=== PATIENT | female | born 1955 | race American Indian/Alaskan Native ===

== ENCOUNTER → 2021-07-19 08:04 | Outpatient (CLI) | payer MEDICARE, MEDICAID, SELFPAY ==
[2021-07-19 09:10] LABS: BUN Creatinine Ratio 14.8 (6-22); Blood Urea Nitrogen 12 mg/dL (7-17); Estimated Glomerular Filt Rate > 60.0 mL/min (>60)
--- NOTE | 2021-07-19 09:49 | DI.CT.S_ITS ---
PROCEDURE: CT CHEST ABD PEL W CON INDICATIONS: breast cancer staging TECHNIQUE: After the administration of oral and intravenous contrast, axial sections acquired from the supraclavicular neck to the pubic symphysis. Coronal and sagittal reformats were performed. For radiation dose reduction, the following was used: automated exposure control, adjustment of mA and/or kV according to patient size. COMPARISON:None. FINDINGS: Image quality: Excellent. CHEST: Lower Neck: No enlarged lymph nodes. Thyroid: Within normal limits. Axillae: No enlarged lymph nodes. Punctate radiodensity and one of the right axillary lymph nodes, likely from recent biopsy. Chest Wall: Dense breast tissue bilaterally. Medial right chest hyperdense or enhancing subdermal nodule. Lungs and Airways: Mild centrilobular emphysematous change. No dense airspace consolidations or suspicious ground-glass opacities. No nodules or masses. Pleura: No pneumothorax or pleural effusions. Heart: Heart size is normal. Trace pericardial effusion. Thoracic Vessels: The aorta and pulmonary arteries demonstrate normal size. Moderate calcific and noncalcified aortic atherosclerosis. Mediastinum and [place]: No enlarged lymph nodes. Esophagus: No wall thickening. No hiatal hernia. ABDOMEN: Liver: Normal size. Mild steatosis. No suspicious mass. Gallbladder: Normal wall thickness. Biliary ducts: Nondilated. Pancreas: Normal. Spleen: Extremely diminutive with a trace amount of linear splenic tissue in the subdiaphragmatic left upper quadrant. Adrenal Glands: No nodules. Kidneys and Ureters: Normal enhancement. No hydronephrosis or hydroureter. No calcifications. Stomach and Bowel: Stomach, small bowel loops, and colon are unremarkable. Occasional diverticulosis. Peritoneum: No abnormal intraperitoneal fluid. No free air. Ventral Wall: No hernia. Abdominal Nodes: Left periaortic lobulated soft tissue, most likely adenopathy measuring 2.9 x 2.6 x 2.3 cm slightly superiorly displacing the left renal artery. No other adenopathy in the retroperitoneum or mesenteric region. Vessels: The abdominal aorta demonstrates moderate atherosclerotic change. There is a semi circumferential periaortic fluid collection in the midportion measuring about 2.6 cm in length which may be partially thrombosed contained rupture. Maximal diameters are 2.5 cm in transverse diameter by 2.7 cm in AP diameter. PELVIS: Pelvic Organs: Uterus and ovaries are normal. Bladder: Partially decompressed and the wall thickness is normal. No stones. Pelvic Nodes: No enlarged lymph nodes. Miscellaneous: No inguinal hernias are seen. Bones: Mild reverse S scoliosis of the thoracolumbar spine and superior endplate depression of L3. There are moderate degenerative endplate changes in L4 and L5. Irregular mixed lytic and sclerotic lesion involving the left sacroiliac joint and partial ankylosis of both SI joints. Degenerative changes in the hips. IMPRESSION: 1. Lobulated soft tissue the left periaortic region just below the left renal vasculature. Given its close association to the aorta and other findings of aortic atherosclerosis. Differential diagnosis includes adenopathy, as well as a contained or thrombosed periaortic hematoma. PET-CT is recommended. 2. No other changes to suspect metastatic disease in the chest, abdomen, or pelvis. 3. Bony changes in bilateral sacroiliac joints may be inflammatory although metastatic lesions cannot be entirely excluded. Correlation with PET-CT or bone scan is recommended. 4. Aortic atherosclerosis and partially thrombosed mid aorta ectasia. 5. Hepatic steatosis. 6. Trace residual splenic tissue. Correlate with history. Dictated by: Mala Potter M.D. on 07/19/2021 at 11:06 Approved by: Mala Potter M.D. on 07/19/2021 at 11:31
== END ==
PROVIDERS: PCP Family Medicine; Referring Provider Surgery; Visit Provider Surgery
DX: Z01.812 Encounter for preprocedural laboratory examination (principal); C50.911 Malignant neoplasm of unspecified site of right female breast; I77.811 Abdominal aortic ectasia; I70.0 Atherosclerosis of aorta; K76.0 Fatty (change of) liver, not elsewhere classified; M89.9 Disorder of bone, unspecified
CPT/HCPCS: 36415; 71260; 74177; 82565; 84520; Q9967

== ENCOUNTER → 2021-07-20 09:30 | Outpatient (CLI) | payer MEDICARE, MEDICAID, SELFPAY ==
[2021-07-20 10:45] LABS: COVID19 -Nasal RAPID Negative (Negative)
== END ==
PROVIDERS: PCP Family Medicine; Visit Provider Surgery
DX: Z01.812 Encounter for preprocedural laboratory examination (principal); Z20.822 Contact with and (suspected) exposure to COVID-19
CPT/HCPCS: 87635; C9803

== ENCOUNTER 2021-07-21 07:44 | Day surgery (SDC) | payer MEDICARE, MEDICAID, SELFPAY ==
[2021-07-19 13:54] VITALS: BMI 17.2
[2021-07-21] VITALS (16 sets, daily range): BP systolic 125–184; BP diastolic 60–102; PULSE 59–90; RESP 12–18; TEMP 36.2–36.8; O2SAT 94–100; BMI 17.2
--- NOTE | 2021-07-21 | DI.MG.S_ITS ---
SPECIMEN: 07/21/2021 CLINICAL: Specimen right. No prior exams were available for correlation. The imaged specimen contains the biopsy clip and spiculated mass with associated calcifications. IMPRESSION: SPECIMEN The imaged specimen contains the biopsy clip and spiculated mass with associated calcifications. This exam was interpreted at Station ID: [id number]. Kwabena Ahn M.D. jr/:07/21/2021 11:38:18
--- NOTE | 2021-07-21 | PATH_ITS ---
[facility] Accession Number: [id number] . 01 Material submitted: . PART A: breast - RIGHT BREAST SHORT STITCH IS SUPERIOR..LONG STITCH LATERAL PART B: lymph node - RIGHT AXILLARY SENTINEL NODES . 02 Diagnosis: A. Right Breast, Mastectomy: Invasive (ductal) carcinoma, grade 1 of 3 (Min combined histologic grade, total score 5/9) with the following features: 1. Tumor size (invasive component): 19 mm, by gross measurement. 2. Nuclear pleomorphism: Intermediate. (2/3) 3. Mitotic rate: Low. (1/3) 4. Tubular differentiation: Moderate degree. (2/3) 5. Ductal carcinoma in situ (DCIS): Present, with the following features: -Nuclear grade: Low to intermediate. -Necrosis: Not identified. -Type: Cribriform. -Extent: Present on more than one slide (five slides with DCIS) corresponding to tissue slices 2-5, spanning approximately 19 mm. 6. Calcifications: Present, in association with invasive carcinoma, benign breast tissue, and media of vessels. 7. Lymphatic invasion: Not identified. 8. Resection margins: a. Invasive carcinoma is less than 0.5 mm from the daniel-superior margin (block A5), 1 mm from the daniel-superior margin (A3 and A4), 1.2 mm from the posterior margin (A5), and more than 2 mm from the remaining margins. b. DCIS is 0.5 mm from the daniel-superior margin (block A7), 0.6 mm from the daniel-superior margin (A5), 3 mm from the posterior margin, and more than 2 mm from the remaining margins. 9. Prognostic markers: Performed on prior biopsy, outside case #[id number], [id number], 05/18/2021) with the following reported findings: -Estrogen receptor: Positive (100% tumor cells staining, strong intensity). -Progesterone receptor: Negative (less than 1% tumor cells staining). -HER2: Negative for HER2 gene amplification by FISH studies. 10. Regional lymph node status (see part B below): Two sentinel lymph nodes, negative for malignancy (0/2). 11. Additional findings: -Skin, nipple and skeletal muscle fragments are present and uninvolved. -Background of fibrocystic change, including microcystic duct dilatation, stromal fibrosis, columnar cell change/columnar cell hyperplasia, apocrine metaplasia, focal usual ductal hyperplasia, and focal sclerosing adenosis. 12. Pathologic stage: pT1c pN0(sn). . B. Right Axillary [place] Lymph Nodes, Dissection: Two lymph nodes, negative for malignancy (0/2). Biopsy site changes are present. MRV 07/26/2021 2341 Local . 02 Electronically signed: . Elise Lyons MD, Pathologist NPI- [id number] . 01 Gross description: . A. The specimen is received in formalin, labeled right breast and consists of a right simple mastectomy specimen. Weight: 117 grams. Measurement: 12.5 cm from medial to lateral by 9.6 cm from superior to inferior by 2.0 cm from anterior to posterior. Skin Ellipse: The serna wrinkled skin ellipse measures 7.5 x 3.8 cm. Nipple/Areola: The slightly everted nipple measuring 0.8 x 0.8 x 0.2 cm and the areolar complex measures 3.2 x 2.5 cm. Axillary Tail: Absent. Margins: The specimen is oriented with a short suture designated superior and a long suture designated lateral. The specimen is inked as follows: Anterosuperior blue, anteroinferior green, posterior black and nipple base yellow. Slices: The specimen is serially sectioned from lateral to medial into 20 slices. Lesion: There is a 1.9 x 1.4 x 0.6 cm well-circumscribed firm serna-white lesion within slices 2-6. The lesion is located 0.2 cm from the deep margin. Distance to Margins: 0.3 cm from the lateral margin, 0.1 cm from the anterosuperior and anteroinferior margins, and greater than 2 cm from the nearest skin, nipple, and medial margins. Biopsy Clip: There is a silver metallic ribbon-shaped biopsy clip centrally located within the lesion in slice 5. Other: The remaining cut surfaces are composed of approximately 70% serna-yellow lobulated adipose tissue and 30% serna-white focally cystic fibrous tissue. Cook Helper Fruit sections are submitted. Dr. Lyons re-reviewed the gross and the blocks on this specimen on 07/26/21. A1: Nipple, perpendicularly sectioned and entirely submitted. A2: Slice 1, medial margin, bilingual call center representative perpendicular sections. A3-A5: Slices 2-4, lesion (A5 contains slice 4, bisected). A6-A7: Slice 5, bisected. A8: Slice 6. A9: Slice 7, medial to lesion. A10-A11: Cook Helper Fruit upper outer quadrant. A12-A13: Cook Hel[place] Fruit upper inner quadrant. A14-A15: Cook Hel[place] Fruit lower inner quadrant. A16: Nipple base. Ischemic Time: Approximately 27 hours. . B. Received in formalin, labeled right axillary sentinel nodes consists of multiple serna-yellow lobulated fragments of adipose tissue measuring 3.5 x 3.0 x 1.5 cm in aggregate which is sectioned to reveal two serna-pink lymph nodes measuring 0.3 x 0.2 x 0.2 cm and 2.5 x 1.0 x 0.6 cm. The specimen is entirely submitted. . B1: One large bisected lymph node. B2: Small lymph node and remaining soft tissue. (EA:[id number]) /MRV 07/26/2021 2341 Local . 02 Pathologist provided ICD-10: C50.911 . 02 CPT . 433997, 380263 Performed at: [facility] [address] [id number] MD Josr Pendleton MD Phone: [phone] [facility]: [facility] [address] [place] [id number] MD Brook Manuel MD Phone: [phone]
[2021-07-21] MEDS: LACTATED RINGERS 1,000 ML 42 ML IV (08:41)
--- NOTE | 2021-07-21 08:56 | DI.NM.S_ITS ---
PROCEDURE: NM SENTINEL NODE W IMAGING RADIOPHARMACEUTICAL: 0.97 mCi Millipore filtered Tc-99m sulfur colloid. INDICATIONS: breast cancer COMPARISON: None. TECHNIQUE: The area around the nipple was prepped and draped in a sterile right breast. Images were obtained subsequently. A body contour outline was obtained. FINDINGS: There is/are 2 lymph node(s) in the ipsilateral axilla, which is marked on the skin and the images for referring physician. IMPRESSION: Administration of radiotracer into the right breast periareolar region for intra-operative sentinel lymph node localization. Dictated by: Sylvie Mendoza MD, PhD on 07/21/2021 at 10:19 Approved by: Sylvie Mendoza MD, PhD on 07/21/2021 at 10:20
[2021-07-21] MEDS: ACETAMINOPHEN 325 MG TABLET 650 MG PO ×3 (09:17→23:32)
--- NOTE | 2021-07-21 10:25 | PM.PREOP ---
Pre-operative Note Interval Note History & Physical reviewed/Exam performed by Physician: Yes Changes to H&P: No
[2021-07-21] MEDS: CEFAZOLIN 2 GM/20 ML SYRINGE IV (10:35)
--- NOTE | 2021-07-21 10:53 | SUR.OPER ---
Supine on padded OR bed, head on pillow, arms secured on padded arm boards at <90 degrees abduction, legs uncrossed, safety belt at thigh, tape over blanket over lower legs.
--- NOTE | 2021-07-21 10:53 | SUR.OPER ---
loose teeth noted.. gel pad under heels and pillow under knees
[2021-07-21] MEDS: BUPIVACAINE 0.25% (PF) VIAL 30 ML INJ (11:00)
--- NOTE | 2021-07-21 11:42 | SUR.OPER ---
BLACK CERUMEN LIKE MATERIAL EXTRUDED FROM PORE ANTERIOR BREAST
[2021-07-21] MEDS: fentaNYL 100 MCG/2 ML INJ IV (12:28)
--- NOTE | 2021-07-21 12:50 | SUR.PHASEI ---
Report to Kaitlin ELIAS
[2021-07-21] MEDS: OXYCODONE IR 5 MG TABLET PO ×2 (12:53→16:58)
[2021-07-21] MEDS: LACTATED RINGERS 1,000 ML 100 ML IV ×2 (13:47→23:32)
--- NOTE | 2021-07-21 15:06 | CM.MNRNOTE ---
Addendum entered by Kaitlin Mcnair R.N. 07/21/21 17:23: Patient given an oxycodone 5mg for complaints of discomfort, she is eating her dinner now and son remains in room. Dressing to r.breast is intact and andres drain put out 55cc of bloody red drainage. Original Note: Assess- Patient to floor at 1300, she states that she has a small amount of pain to her r.mastecomy site. She has an incision with andres drain in place, putting out bloody red drainage. Patient has some dementia and forgefulness.. She is incontinent of urine and bowel, which was all dried to her vaginal area, cleaned up and comfortable now. She has iv LR infusing at 100cc/hr. Patient has some petechiae to her shins, and her bottom is purplish red and blanchable. No open area's seen. Son is in room and going to stay the night with his mom.
--- NOTE | 2021-07-21 15:43 | P.OP_ITS ---
Operative Date/Time/Diagnoses Date of procedure: 07/21/21 Time of procedure: 15:43 Pre-op diagnosis: right breast cancer Post-op diagnosis: same Procedure & Clinicians Procedure: Right mastectomy with sentinel lymph node biopsy Same procedure as scheduled: Yes Indications: Biopsy proven right breast cancer, clinically negative axilla. Surgeon: Olaf Porras Click Yes if Unassisted: Yes Anesthesia Type: General Operative Notes Findings: 2 sentinel lymph nodes. The mastectomy specimen contains the clip. Specimen(s): other (right breast and right axillary sentinel lymph node) Estimated Blood Loss (mL): 20 Procedure in detail: Patient was brought to the operating room placed supine on the table. Bilateral lower extremity compression devices were applied. She received 2 g of Ancef prior to skin incision. She was intubated with an endotracheal tube. She was then prepped and draped in sterile fashion. Time-out was performed ensure the correct patient procedure necessary equipment within the operating room. An elliptical incision around the nipple areola complex was made with the knife. The subcutaneous tissue was divided with electrocautery. Skin flaps were raised to separate the breast tissue from the skin along the subdermal plexus. The dissection was extended superior to the clavicle, medial to the sternum, inferior the the inframamary fold and lateral to the anterior border of the latisimus dorsi. Next the breast tissue was from the underlying pectoralis fascia. The breast was passed off the field marked short stitch superior long stitch lateral. The flaps were viable. The left axillary tissue was carefully dissected towards the area of maximal radioactivity. A sentinel lymph node was identified. The node was removed after first ligating its pedicle with hemo clips. I returned the gamma probe to the field and there continued to be increased radioactivity and a second sentinel lymph node was identified and dissected in similar fashion. A 19 [place] Tiburcio drain was placed into the mastectomy wound and exited from the inferior flap. The axilla was inspected for hemostasis and then the subcutaneous tissue was closed with the 3 0 Vicryl suture and skin closed with 4 Monocryl followed by dermabond. Patient tolerated procedure well she emerged from anesthesia was extubated and transferred to recovery room in stable condition. Complications: none Post-operative Condition: stable Disposition: same day surgery
[2021-07-21] MEDS: TRIMETH/SULFA 160/800 (DS) TABLET 1 TAB PO (21:29)
[2021-07-22 02:00] VITALS: O2SAT 98
[2021-07-22 04:00] VITALS: BP 128/70; PULSE 62; RESP 18; TEMP 36.7; O2SAT 98
[2021-07-22] MEDS: ACETAMINOPHEN 325 MG TABLET 650 MG PO (05:26)
[2021-07-22 06:00] VITALS: O2SAT 98
--- NOTE | 2021-07-22 07:54 | PC.NURSE ---
0800- Patient is alert and oriented x3 at this time, she does have periods of confusion. R. mastectomy incision dressed and cdi, andres drain putting out minimal bloody red drainage. Son is at bedside and supportive to his mother. Up x1 to void, she is a one person assist with walker to bsc.
[2021-07-22 08:00] VITALS: BP 135/65; PULSE 65; RESP 16; TEMP 36.7; O2SAT 99
[2021-07-22] MEDS: TRIMETH/SULFA 160/800 (DS) TABLET 1 TAB PO (08:21)
--- NOTE | 2021-07-22 11:04 | CM.DANOTE ---
DCP Assessment: Patient is a 66 yr old female who was admitted after having a RT mastectomy preformed by Dr. Porras. CM met with patient and her adult son Héctor at the bedside and explained role. Patient was alert and oriented x3 at time of CM visit. patients son was attentive and involved in CM meeting. patient states her son lives with her and is her methods time analyst care consultant right now. Patient is states she is Independent at baseline but does not drive any longer. Patient does not currently have a FWW at home but would like one. Patients son stated he was going to get one prior to going home today. Patients Son expressed concerns with being able to get the patients prescriptions prior to going home due to ride issues and a ferry schedule. CM spoke with patients nurse Kaitlin who stated she would get their prescriptions and let the patients son go pick them up prior to being DC from the hospital. I: Medicare and medicaid Plan: DC home with son - no identified DC planning needs identified at this time. patients son was given RX and stated he would pick them up prior to patient being DC home. Chiara Oconnell Discharge Planning/Care Management Discharge Assessment Start: 07/22/21 10:51 Freq: Status: Active Protocol: Document 07/22/21 11:02 HS (Rec: 07/22/21 11:04 [id number]) Discharge Planning Assessment Assigned Belt Turner Chiara Oconnell DPOA/Assigned Designee Name Héctor Lopez (son) Contact Information [phone] Advance Directives? No History Provided By Patient,Family Member,Medical Record Has Patient been admitted in last 30 No days? Prior Living Arrangements House Household Members children Type of transporation used prior to Relies on Others admit Independent with ADL's Yes Is patient alert and oriented? Yes Caregiver for Another No DME Already Rented / Owned FWW / Walker Clinicals Faxed No Barriers to Discharge No Discharge Plan Home Referrals Initiated None needed Whiteboard Updated in Patient Room with Yes name and ext. # of Belt Turner Review Status In Process Next Review Type Continued Stay Review Pre-Anesthesia Assessment Start: 07/19/21 13:53 Freq: Status: Active Protocol: Document 07/19/21 13:54 CAB (Rec: 07/19/21 14:33 CAB [id number]) Pre-Anesthesia Assessment Patient Information Reviewed Via Phone Assessment Assessment Completed With Patient Comment COVID screen @ 07/19/21. Primary Care Provider Sandi Griffith Seen Specialist in Last 12 Months Yes Specialist Seen General surgeon,Oncologist Primary Language Polish Receptionist Clerk Required No Height 157.48 cm Weight 42.638 kg Body Mass Index (BMI) 17.2 Hearing Ability Normal Visual Assist Glasses Dentition Type Teeth, Natural Present,Teeth, Missing Barriers to Learning None Hx Anesthesia Reactions No Hx Family Anesthesia Reaction No Hx Malignant Hyperthermia No Hx Blood Transfusions No Anesthesia Review Requested No alcohol intake former Smoking Status Current every day smoker Tobacco type cigarettes Smoking cigarettes per day 10 Substance Use Type does not use Pain Present Denied Pain Musculoskeletal Symptoms Abnormal Gait,Difficulty Walking History of Falling (Recent or History of Yes ) Patient is completely paralyzed or No completely immobile Prosthesis or Orthotic Device Wheelchair Mental Status Oriented to own ability Comment Balance issues Is patient on oxygen? No Does patient have LOVETT/SOB No: Fatigues easily with exertion Hx Sleep Apnea No Currently Taking a Beta Bobbi No Can You Climb a Flight of Stairs Without No SOB Hx Chest Pain No Hx SOB No Hx Syncope or Dizziness No Anti-Coagulant Therapy No Has a Flow Floor Attendant No Cardiac Testing No Hx Pacemaker/ICD No Pacemaker Rep Required? No Diet Type At Home Regular dysphagia Yes: Solids, recent weight loss r/t decreased appetitie Gastrointestinal Symptoms Abdominal Pain Bladder Pattern Incontinent Urinary Catheter Present No Hx Urinary Self Catheterization No Diabetes No Patient No Lactating No Hx Drug Resistant Organism No Presence of External or Internal Medical No Devices Have you had any close contact with No someone diagnosed with COVID-19? Received a COVID vaccine? No Marital Status / Lives With children Prior Living Arrangements House Support System Child/Children Does the Patient Have Assistance After Yes Surgery Patient Discharge Plan Description Return Home Comment Pt advised overnight length of stay per surgeon Feels Safe in Current Environment Yes Been Physically Hurt or Threatened By a No Person in Current Environment Do you have thoughts of harming yourself None or others? Are you currently considering suicide? No Do you have a plan to hurt yourself or No Plan others? Do You Have Any Spiritual Beliefs That No May Affect Your HC Choices? Do You Have Any Cultural Practices That No May Affect Your HC Choices? Comment George Who Can We Speak to About Patient's Care Family, friends Identifying Code for Release of Patient Declines to issue Information Health Care Proxy/Next of Kin Héctor (son) Health Care Proxy Emergency Contact Name Héctor (son) Emergency Contact Advance Directives? No Power of Bridge Operator Slip No PAC Instructions Diabetes instructions, Medications to take/avoid,No ETOH/petroleum product on skin DOS,NPO,Post-op transportation,Sturdy shoes/ comfortable clothes,Do not bring valuables and remove jewelry
== END 2021-07-22 11:41 | disposition home or self-care (01) ==
LOC: OR 07:47 → AC 07:47
PROVIDERS: PCP Family Medicine; Referring Provider Surgery; Visit Provider Surgery
PROC: 0HTT0ZZ Resection of Right Breast, Open Approach (ICD-10-PCS; CPT 19303; principal; 2021-07-21 10:15)
DX: C50.911 Malignant neoplasm of unspecified site of right female breast (principal); Z17.0 Estrogen receptor positive status [ER+]; F17.210 Nicotine dependence, cigarettes, uncomplicated; F03.90 Unspecified dementia, unspecified severity, without behavioral disturbance, psychotic disturbance, mood disturbance, and anxiety; E46 Unspecified protein-calorie malnutrition; Z68.1 Body mass index [BMI] 19.9 or less, adult
CPT/HCPCS: 19303; 38500; 76098; 78195; 94760; A9541; J0690; J1100; J2405; J2704; J3010